=== PATIENT | female | born 1940 | race African-American/Black ===

== ENCOUNTER → 2021-01-07 | Outpatient (CLI) | payer MEDICARE, BC ==
--- NOTE | 2021-01-07 13:18 | RAD ---
DATE: 01/07/2021 11:36 AM EXAM: MAMMO DENZEL GENET DOTY, BREAST LEFT HISTORY: 80-year-old woman due for screening presenting with a left breast lump. She reports a history of bilateral benign breast biopsies. Lump in the left breast was observed 3 weeks ago. No Covid vaccination. COMPARISON: Bilateral mammogram of 03/30/2012 Bilateral CC and MLO views of the breasts were performed. Bilateral breast tomosynthesis was performed in CC and MLO projections. In addition, spot compression view of the left breast in the CC projection was obtained. This study was interpreted with the benefit of Computerized Aided Detection (CAD). FINDINGS: Breast Density: HETERO The breast parenchyma Is heterogeneously dense, which could reduce sensitivity of mammography. Breast parenchyma level C In the right breast, scattered benign-appearing calcifications are present along with an anterior subareolar tissue of the biopsy marker. No suspicious findings in the right breast are appreciated on 2-D or 3-D mammogram. In the left breast, in addition to coarse dystrophic type calcifications scattered in the left breast is a ribbon shaped biopsy marker associated with a partially circumscribed, partly obscured oval mass in the lateral left breast measuring approximately 2.5 cm. The biopsy marker is at the anteromedial margin of the mass. This correlates with the area of palpable concern as reported by the patient and marked at the skin surface with a BB marker. This was pursued with ultrasound and revealed a mixed solid and cystic mass with internal vascularity in the solid component. This is at the 3:00 position 2 cm from the nipple. Overall it measures 2.3 x 1.5 x 1.6 cm. No axillary adenopathy. IMPRESSION: Suspicious 2.3 cm mixed solid and cystic palpable mass in the lateral anterior left breast. Since this has enlarged following previous benign biopsy, recommend surgical excision for definitive diagnosis and management. BI-RADS CATEGORY: 4 SUSPICIOUS ABNORMALITY- BIOPSY SHOULD BE CONSIDERED RECOMMENDED FOLLOW-UP: SURG SURGICAL CONSULTATIONDiscussed with patient. Also discussed with her referring surgeon Dr. Colon at approximately 12:45 PM on 01/07/2021 PQRS compliance statement: Patient information was entered into a reminder system with a target due date for the next mammogram. Mammography is a sensitive method for finding small breast cancers, but it does not detect them all and is not a substitute for careful clinical examination. A negative mammogram does not negate a clinically suspicious finding and should not result in delay in biopsying a clinically suspicious abnormality. "Our facility is accredited by the [employer] Mammography Program."
== END ==
LOC: MAMMO 11:24
PROVIDERS: ATTEND Specialist
DX: R92.8 Other abnormal and inconclusive findings on diagnostic imaging of breast (principal)
CPT/HCPCS: 76641; 77066; G0279; 77062

== ENCOUNTER 2021-01-13 08:56 | Day surgery (SDC) | payer MEDICARE, BC ==
--- NOTE | 2021-01-13 06:56 | HP ---
ADMIT DATE: HISTORY OF PRESENT ILLNESS: The patient comes to me because of a mass of the left breast. She had one about 8-10 years ago of the right breast, which was benign and had been removed, this when she is noted for a month or so and came to the me. PAST MEDICAL HISTORY: Shows normal childhood diseases. She takes no medications. No high blood pressure, cancer, TB or asthma. She has as stated before had a right breast biopsy done for benign disease about 10 years ago. She otherwise is doing well. ALLERGIES: She has no allergies. SOCIAL HISTORY: Drinks only socially, does not use illicit drugs and does not smoke. REVIEW OF SYSTEMS: Negative as she takes no medications and has no other illnesses to her knowledge. FAMILY HISTORY: Noncontributory. PHYSICAL EXAMINATION: GENERAL: Shows an alert female in no acute distress. HEAD, EYES, NOSE AND THROAT: Grossly normal. CHEST: Clear bilaterally to auscultation. HEART: Had a rate of 72 beats per minute, was regular. No murmurs, heaves, friction rubs or other abnormalities were noted. ABDOMEN: Negative. EXTREMITIES: Grossly negative. BREASTS: Right breast in both axillary areas were negative. The left breast did have at the mid portion laterally about 3-4 inches from the areola margin about the 9 o'clock position was a mass. It is movable about 1.5 cm to 2 cm in size. It had not been there before. There was no skin retraction, irritation, erythema or other suggestions of any other disease other than the mass of the breast. IMPRESSION: Mass, left breast. PLAN: Excision of mass, left breast. The patient did have a mammogram in speaking with the radiologist that read at [facility]. The radiologist suggested an excisional biopsy and not to do a needle core or any other radiographic check or biopsy. The patient understands this and she wished to have it removed anyway and was going to have that done regardless. As such, we will plan excision of left breast mass. RADHA MOYER MD DR: YO/ramiro JOB#: [id number] / [id number]
[~2021-01-13 08:56] MED LIST: HYDROmorphone 2 MG/ML VIAL IVP PRN; IV RINGERS,LACTATED 1000ML 1,000 ML IV SCH; MORPHINE SULFATE 2 MG/ML VIAL. IVP PRN; PROCHLORPERAZINE 10 MG/2 ML VIAL. IVP PRN; fentaNYL PF VIAL 100 MCG/2 ML VIAL IVP PRN
[2021-01-13] MEDS ORDERED: fentaNYL PF VIAL 100 MCG/2 ML VIAL ONE (09:26)
[2021-01-13] MEDS ORDERED: PROPOFOL 10 MG/ML (20ML) VIAL. IV ONE ×2 (09:26→13:00)
[2021-01-13] MEDS ORDERED: LIDOCAINE 2% PF 5 ML VIAL. ONE (09:26)
[2021-01-13] MEDS ORDERED: AMLO-186 PO (09:42)
[2021-01-13] MEDS ORDERED: FOLI0.4T5 PO (09:43)
[2021-01-13] MEDS ORDERED: ASPI-886 PO (09:43)
[2021-01-13] MEDS ORDERED: ATOR20TA PO (09:43)
[2021-01-13] MEDS ORDERED: MULT-766 PO (09:44)
[2021-01-13] MEDS ORDERED: BISO1TAB4 PO (09:53)
[2021-01-13 09:59] LABS: BASO % 1 % (0-3); EOS # 0.2 x10^3/uL (0.0-0.7); EOS % 3 % (0-3); HEMATOCRIT 33.4 % (36.0-47.0); LYMPH # 2.6 x10^3/uL (1.0-4.8); LYMPH % 38 % (24-48); MEAN CORPUSCULAR HEMOGLOBIN 27 pg (25-35); MEAN CORPUSCULAR HGB CONC 33 g/dL (31-37); MEAN CORPUSCULAR VOLUME 82 fL (79-100); MONO # 0.7 x10^3/uL (0.0-1.1); MONO % 11 % (0-9); NEUT # 3.3 x10^3/uL (1.8-7.7); NEUT % 48 % (31-73); PLATELET COUNT 176 x10^3/uL (140-400); RED CELL DISTRIBUTION WIDTH 17.1 % (11.5-14.5); WHITE BLOOD COUNT 6.8 x10^3/uL (4.0-11.0)
[2021-01-13 10:04] LABS: ALBUMIN 3.9 g/dL (3.4-5.0); ALBUMIN/GLOBULIN RATIO 0.8 (1.0-1.7); CREATININE 1.2 mg/dL (0.6-1.0); GFR 52.6; POTASSIUM 3.6 mmol/L (3.5-5.1); TOTAL PROTEIN 8.6 g/dL (6.4-8.2)
[2021-01-13] MEDS ORDERED: SCOPOLAMINE 1.5MG PATCH. TD SCH (10:15)
[2021-01-13] MEDS ORDERED: METHYLENE BLUE 0.5% 10ml AMPULE. ONE (11:31)
--- NOTE | 2021-01-13 12:39 | PDOC ---
SURGICAL PROGRESS NOTE DATE: 01/13/21 TIME: 12:37 Op Note: Surgeon.............................................Isaiah Pre and post op diag............................mass left breast Anesthesia.........................................generl Procedure..........................................excision mass left breast Drains...............................................none Fluids...............................................see anesthesia sheet. Blood loss..........................................7cc Condition..........................................satisfactory Vital Signs Vital Signs Date Time Temp Pulse Resp B/P (MAP) Pulse Ox O2 Delivery O2 Flow Rate FiO2 01/13/21 09:37 97.6 72 18 182/82 97 97.6 Labs Laboratory Tests Test 01/13/21 09:05 01/13/21 09:45 SARS-CoV-2 Antigen (Rapid) Negative (NEGATIVE) White Blood Count 6.8 x10^3/uL (4.0-11.0) Red Blood Count 4.10 x10^6/uL (3.50-5.40) Hemoglobin 11.0 g/dL (12.0-15.5) Hematocrit 33.4 % (36.0-47.0) Mean Corpuscular Volume 82 fL (79-100) Mean Corpuscular Hemoglobin 27 pg (25-35) Mean Corpuscular Hemoglobin Concent 33 g/dL (31-37) Red Cell Distribution Width 17.1 % (11.5-14.5) Platelet Count 176 x10^3/uL (140-400) Neutrophils (%) (Auto) 48 % (31-73) Lymphocytes (%) (Auto) 38 % (24-48) Monocytes (%) (Auto) 11 % (0-9) Eosinophils (%) (Auto) 3 % (0-3) Basophils (%) (Auto) 1 % (0-3) Neutrophils # (Auto) 3.3 x10^3/uL (1.8-7.7) Lymphocytes # (Auto) 2.6 x10^3/uL (1.0-4.8) Monocytes # (Auto) 0.7 x10^3/uL (0.0-1.1) Eosinophils # (Auto) 0.2 x10^3/uL (0.0-0.7) Basophils # (Auto) 0.0 x10^3/uL (0.0-0.2) Sodium Level 143 mmol/L (136-145) Potassium Level 3.6 mmol/L (3.5-5.1) Chloride Level 108 mmol/L (98-107) Carbon Dioxide Level 25 mmol/L (21-32) Anion Gap 10 (6-14) Blood Urea Nitrogen 27 mg/dL (7-20) Creatinine 1.2 mg/dL (0.6-1.0) Estimated GFR (Cockcroft-Gault) 52.6 BUN/Creatinine Ratio 23 (6-20) Glucose Level 106 mg/dL (70-99) Calcium Level 10.0 mg/dL (8.5-10.1) Total Bilirubin 1.0 mg/dL (0.2-1.0) Aspartate Amino Transf (AST/SGOT) 28 U/L (15-37) Alanine Aminotransferase (ALT/SGPT) 18 U/L (14-59) Alkaline Phosphatase 112 U/L (46-116) Total Protein 8.6 g/dL (6.4-8.2) Albumin 3.9 g/dL (3.4-5.0) Albumin/Globulin Ratio 0.8 (1.0-1.7) Laboratory Tests Test 01/13/21 09:05 01/13/21 09:45 SARS-CoV-2 Antigen (Rapid) Negative (NEGATIVE) White Blood Count 6.8 x10^3/uL (4.0-11.0) Red Blood Count 4.10 x10^6/uL (3.50-5.40) Hemoglobin 11.0 g/dL (12.0-15.5) Hematocrit 33.4 % (36.0-47.0) Mean Corpuscular Volume 82 fL (79-100) Mean Corpuscular Hemoglobin 27 pg (25-35) Mean Corpuscular Hemoglobin Concent 33 g/dL (31-37) Red Cell Distribution Width 17.1 % (11.5-14.5) Platelet Count 176 x10^3/uL (140-400) Neutrophils (%) (Auto) 48 % (31-73) Lymphocytes (%) (Auto) 38 % (24-48) Monocytes (%) (Auto) 11 % (0-9) Eosinophils (%) (Auto) 3 % (0-3) Basophils (%) (Auto) 1 % (0-3) Neutrophils # (Auto) 3.3 x10^3/uL (1.8-7.7) Lymphocytes # (Auto) 2.6 x10^3/uL (1.0-4.8) Monocytes # (Auto) 0.7 x10^3/uL (0.0-1.1) Eosinophils # (Auto) 0.2 x10^3/uL (0.0-0.7) Basophils # (Auto) 0.0 x10^3/uL (0.0-0.2) Sodium Level 143 mmol/L (136-145) Potassium Level 3.6 mmol/L (3.5-5.1) Chloride Level 108 mmol/L (98-107) Carbon Dioxide Level 25 mmol/L (21-32) Anion Gap 10 (6-14) Blood Urea Nitrogen 27 mg/dL (7-20) Creatinine 1.2 mg/dL (0.6-1.0) Estimated GFR (Cockcroft-Gault) 52.6 BUN/Creatinine Ratio 23 (6-20) Glucose Level 106 mg/dL (70-99) Calcium Level 10.0 mg/dL (8.5-10.1) Total Bilirubin 1.0 mg/dL (0.2-1.0) Aspartate Amino Transf (AST/SGOT) 28 U/L (15-37) Alanine Aminotransferase (ALT/SGPT) 18 U/L (14-59) Alkaline Phosphatase 112 U/L (46-116) Total Protein 8.6 g/dL (6.4-8.2) Albumin 3.9 g/dL (3.4-5.0) Albumin/Globulin Ratio 0.8 (1.0-1.7) Justicifation of Admission Dx: Justifications for Admission: Justification of Admission Dx: Yes RADHA MOYER MD Jan 13, 2021 12:39
[2021-01-13] MEDS ORDERED: ONDANSETRON PF 4 MG/2 ML VIAL. ONE ×2 (12:49→14:43)
[2021-01-13] MEDS ORDERED: DEXAMETHASONE SOD PHOS 4 MG/ML VIAL ONE (12:49)
[2021-01-13] MEDS ORDERED: FAMOTIDINE 20 MG/2 ML VIAL ONE (12:52)
[2021-01-13] MEDS ORDERED: SEVOFLURANE 31 TO 60 MINUTES. IH ONE (13:01)
[2021-01-13] MEDS ORDERED: oxyCODONE/APAP 5/325 1 TAB TABLET PO ONE (14:00)
--- NOTE | 2021-01-13 14:03 | DISCH ---
DISCHARGE INSTRUCTIONS Condition on Discharge Condition on Discharge: Stable (none) Activity After Discharge Activity Instructions for Disc: Avoid exertion Diet after Discharge Diet after Discharge: Clear Liquid Additional Diet Restrictions: as desired Wound Incision Care Wound/Incision Care: Other, see below Other wound/incision instructi: keep wound dry and clean Follow-Up Follow up with: call and make appt to swee me in 14 days Treatment/Equipment after DC Adaptive Equipment Issued: None RADHA MOYER MD Jan 13, 2021 14:03
[2021-01-13] MEDS ORDERED: OXYC-325 PO (14:10)
[2021-01-13] MEDS ORDERED: ONDANSETRON PF 4 MG/2 ML VIAL. IVP ONE (14:45)
[2021-01-13] MEDS ORDERED: diphenhydrAMINE 50 MG/ML VIAL IVP ONE (15:15)
[2021-01-13] MEDS ORDERED: diphenhydrAMINE 50 MG/ML VIAL ONE (15:17)
[2021-01-13 16:05] VITALS: BP 150/76
--- NOTE | 2021-01-17 22:41 | OP ---
DATE OF SURGERY: SURGEON: Calvin Moyer MD PREOPERATIVE DIAGNOSIS: Mass of the left breast. POSTOPERATIVE DIAGNOSIS: Mass of the left breast. ANESTHESIA: General. PROCEDURE: Excision of mass, left breast. TECHNIQUE: Under general anesthesia, the patient was properly prepped and draped in a routine fashion. The lesion being at about the 3 o'clock position about a centimeter or two from the areola margin. We made a circumareolar incision between 2 and 4 o'clock position at the areola margin. We did this with a 15 blade and went down through the skin. We got into the subcutaneous and then using clamps and Metzenbaum scissors went over to the mass. We grasped the tissue around the mass and using Corona retractors held the wound open, pull the mass up with the surrounding tissues and used cautery to go around the lesion completely and remove it completely from the breast tissue. This was sent to the lab. The resultant defect was inspected 1-2 small bleeders were cauterized and the breast tissue was approximated with interrupted 4-0 Vicryl and then the skin was closed using a subcuticular 5-0 Vicryl. The procedure was then terminated as the sterile dressing was applied. There was no further bleeding. The blood loss was probably 2-3 mL. Fluids given can be obtained from the anesthesia sheet. DRAINS: None. Condition of the patient was satisfactory as she has returned to the recovery room. CALVIN MOYER MD DR: YO/ramiro JOB#: [id number] / [id number]
--- NOTE | 2021-01-20 15:09 | PATHOLOGY ---
[facility] Accession Number: [id number] . 01 Material submitted: . breast - LEFT BREAST MASS. Modifiers: left . 01 Clinical history: . EXCISION OF LEFT BREAST MASS . 02 Diagnosis: Breast tissue, left breast mass excision: - ENCAPSULATED (INTRACYSTIC) PAPILLARY CARCINOMA. SEE COMMENT. - Proliferative fibrocystic changes with the following components: - Florid ductal epithelial hyperplasia. - Confluent stromal fibrosis. - Duct ectasia. - Cystic change. - Apocrine metaplasia, focal. - Scattered microcalcifications and focal medial arterial calcification identified. (JPM:pit:db 01/18/2021) [facility] 01/20/2021 0959 Local . 02 Comment: Sections of the left breast mass excision reveal a cystically dilated duct or cyst containing an atypical ductal epithelial proliferation. The wall of the duct/cyst is thickened and fibrotic and shows focal recent and remote hemorrhage. A portion of the atypical ductal epithelial proliferation has a papillary architecture, with papillae covered by several layers of uniform columnar epithelial cells. Much of the atypical ductal epithelial proliferation consists of uniform epithelial cells having a cribriform architecture. The atypical epithelial cells have low grade nuclei. The cystically dilated space containing the atypical ductal epithelial proliferation measures approximately 1.0 cm in greatest dimension on the glass slide. Elsewhere, the breast tissue shows proliferative fibrocystic changes with focal florid ductal epithelial hyperplasia. A panel of immunoperoxidase stains is obtained and yields the following results: . p63 (A7): Absence of myoepithelial cells within atypical ductal epithelial proliferation and about periphery of cystic space. . Smooth muscle myosin heavy chain (A7): Absence of myoepithelial cells within atypical ductal epithelial proliferation and about periphery of cystic space. . CK5/6 (A7): Atypical ductal epithelial proliferation negative. . p63 (A13): Absence of myoepithelial cells within atypical ductal epithelial proliferation and about periphery of cystic space. . Smooth muscle myosin heavy chain (A13): Absence of myoepithelial cells within atypical ductal epithelial proliferation and about periphery of cystic space. . CK5/6 (A13): Atypical ductal epithelial proliferation negative. . The morphologic and immunophenotypic findings are supportive of the diagnosis of encapsulated (intracystic) papillary carcinoma. The lesion is focally 1 mm from the closest inked margin of resection. Regardless of whether these lesions are in situ or invasive in nature, outcome studies have demonstrated that they are associated with an excellent prognosis with adequate local therapy alone. Breast prognostic studies will be obtained on A13, the results of which will be reported separately. The case is also examined by Dr. Rhiannon Paulson, who concurs with the diagnosis on 01/20/2021. The results are reported to Dr. Colon on 01/20/21 at 1:45 PM. . (JPM/db; 01/19/2021) . Special stains performed: p63, smooth muscle myosin heavy chain, CK5/6 on A7 and p63, smooth muscle myosin heavy chain, CK5/6 on A13 . 02 Electronically signed: . Chris Zelaya MD, Pathologist NPI- [id number] . 01 Gross description: . Fixative: Formalin Labeled: Left breast mass Specimen received: Segment of bright yellow fibrofatty tissue Weight: 13 g Oriented: No Dimensions: 4.6 x 3.7 x 2.2 cm Number of slices: 12 Lesion/abnormalities: Possible previous biopsy site measuring 0.8 x 0.8 x 0.5 cm Closest margin: 0.2 cm Cut surfaces: Bright yellow, lobulated to white, fibrous, with the fibrous tissue encompassing approximately 50% of the specimen . The specimen is submitted entirely in cassettes A1 through A16, with sections in cassettes A5 through A12 additionally bisected. . The specimen is removed from the patient at 1315 on 01/13/2021. The time in formalin is not provided. The specimen is removed from formalin at 2150 on 01/14/2021. The specimen is in formalin for greater than 6 hours and less than 72 hours. (CAA; 01/14/2021) QAC/QAC 01/14/2021 1555 Local . 02 Pathologist provided ICD-10: N60.12, N62, N60.32, N60.42, N60.82 . 02 CPT . 981395, C90693, [id number] Specimen Comment: A courtesy copy of this report has been sent to [phone] Specimen Comment: Report sent to Performed at: [address] [facility], [place] [id number] MD Kamari Echeverria MD Phone: [phone] Performed at: [facility] [address], [place] [id number] MD Chris Zelaya MD Phone: [phone]
== END 2021-01-13 16:30 | disposition home or self-care (01) ==
LOC: SURG 08:56
PROVIDERS: ATTEND Specialist
DX: N63.20 Unspecified lump in the left breast, unspecified quadrant (principal); N60.12 Diffuse cystic mastopathy of left breast; N60.42 Mammary duct ectasia of left breast; N60.82 Other benign mammary dysplasias of left breast; E78.00 Pure hypercholesterolemia, unspecified; M19.90 Unspecified osteoarthritis, unspecified site; I10 Essential (primary) hypertension; Z90.710 Acquired absence of both cervix and uterus; Z98.890 Other specified postprocedural states; Z79.899 Other long term (current) drug therapy; Z79.82 Long term (current) use of aspirin; Z88.8 Allergy status to other drugs, medicaments and biological substances; Z20.822 Contact with and (suspected) exposure to COVID-19
CPT/HCPCS: 19120; 36415; 80053; 85025; 87426; A4930; A6258; J1100; J1200; J2405; J2704; J3010; J3490; U0003; 88307; 88341; 88342; Q9968

== ENCOUNTER → 2021-08-30 | Outpatient (CLI) | payer MEDICARE, BC ==
[~2021-08-30] MED LIST changes: +AMLO-186 PO; +ASPI-886 PO; +ATOR20TA PO; +BISO1TAB83 PO; +FOLI0.4T5 PO; -HYDROmorphone 2 MG/ML VIAL IVP PRN; -IV RINGERS,LACTATED 1000ML 1,000 ML IV SCH; -MORPHINE SULFATE 2 MG/ML VIAL. IVP PRN; +MULT-766 PO; +OXYC-325 PO; -PROCHLORPERAZINE 10 MG/2 ML VIAL. IVP PRN; -fentaNYL PF VIAL 100 MCG/2 ML VIAL IVP PRN
--- NOTE | 2021-08-30 11:05 | RAD ---
EXAM: Left breast diagnostic mammogram with tomosynthesis. HISTORY: 81-year-old female with a history of left breast papillary carcinoma, status post resection, presents for follow-up evaluation. TECHNIQUE: Full-field digital craniocaudal and mediolateral oblique 2D and 3D tomosynthesis images of both the left breast are obtained for evaluation. Computer aided detection was applied. COMPARISON: 01/07/2021 and 03/30/2012 BREAST PARENCHYMAL DENSITY: Level C - Heterogeneously dense. FINDINGS: There has been interval excisional biopsy of a previously demonstrated lesion within the an terior 3:00 position of the left breast. There is associated postoperative architectural distortion i n this location. There are clustered and scattered coarse calcifications throughout the left breast, stable compared to the most recent comparison study and minimally increased compared to the study per formed 03/30/2012. The minimal interval private branch exchange operator a nearly 10 year interval favors benignity. There is no new suspicious mammographic finding. IMPRESSION: 1. Findings consistent with interval left breast surgical excision of reported biopsy-proven papillar y carcinoma. 2. No new suspicious mammographic finding. 3. BI-RADS Category 3: Probably benign finding(s). Short term follow up with a diagnostic bilateral b reast mammogram in 4 months is recommended to correspond with the previously established bilateral ma mmography interval and confirm stability of postoperative changes involving the left breast. If your mammogram demonstrates that you have dense breast tissue, which could hide abnormalities, and if you have other risk factors for breast cancer that have been identified, you might benefit from s upplemental screening tests that may be suggested by your ordering physician. Dense breast tissue, i n and of itself, is a relatively common condition. This information is not provided to cause undue c oncern, but rather to raise your awareness and to promote discussion with your physician regarding th e presence of other risk factors, in addition to dense breast tissue. A report of your mammography re sults will be sent to you and your physician. You should contact your physician if you have any ques tions or concerns regarding this report. Mammography is a sensitive method for finding small breast cancers, but it does not detect them all a nd is not a substitute for careful clinical examination. A negative mammogram does not negate a clin ically suspicious finding and should not result in delay in biopsying a clinically suspicious abnorma lity. PQRS compliance statement - Patient information was entered into a reminder system with a target due date for the next mammogram. "Our facility is accredited by the [employer] Mammography Program." Electronically signed by: Jane Randolph MD (08/30/2021 11:03 AM) [id number]
== END ==
LOC: MAMMO 08:53
PROVIDERS: ATTEND Specialist
DX: C50.412 Malignant neoplasm of upper-outer quadrant of left female breast (principal); Z48.89 Encounter for other specified surgical aftercare
CPT/HCPCS: 77065; G0279; 77061

== ENCOUNTER → 2022-01-03 | Outpatient (CLI) | payer MEDICARE, BC ==
--- NOTE | 2022-01-03 13:49 | RAD ---
PROCEDURE: MG DIGITAL BILAT DIAGNOSTIC MAMMO WITH DENZEL HISTORY: The patient is 81 years old and is seen for Reason: 4 MO FU left breast,screening [facility]j[address] / Spl. Instructions: / History: . COMPARISON: August 30, 2021 and January 07, 2021 TECHNIQUE: CC and MLO views of both breasts were obtained. Images were processed by the [employer] computer-aided detection system. DENSITY: The breast parenchyma is heterogeneously dense. This may lower the sensitivity of mammograph y. FINDINGS: Right breast: Biopsy marker within the anterior breast. Benign-appearing calcifications. Left breast: Postoperative changes excisional biopsy, similar compared to prior. Benign-appearing ryan cifications, unchanged. IMPRESSION: Benign findings. No evidence of malignancy. Stable left breast postoperative changes. Recommend annual screening mammograms per [employer] guidelines. She will be due in one year. BI-RADS category 2 Benign Patient entered into a reminder system for annual screening mammogram. Electronically signed by: Ellis Sunshine DO (01/03/2022 1:46 PM) [id number]
== END ==
LOC: MAMMO 13:00
PROVIDERS: ATTEND Internal Medicine Hematology & Oncology
DX: R92.8 Other abnormal and inconclusive findings on diagnostic imaging of breast (principal); Z98.890 Other specified postprocedural states
CPT/HCPCS: 77066; G0279; 77062